=== PATIENT | male | born 1990 | race Caucasian/White ===

== ENCOUNTER 2018-01-24 09:49 | Emergency (ER) | payer MEDICAID ==
[~2018-01-24] VITALS: Ht 177.8 cm; Wt 77.6 kg
[~2018-01-24 09:49] MED LIST: ATIVAN0.5 MG PO; IBUPROFEN 800800 MG PO; PROZAC10 MG PO
[2018-01-24] MEDS ORDERED: IBUPROFEN 800800 M1 PO (11:30)
[2018-01-24 11:40] VITALS: BP 133/88
== END 2018-01-24 11:41 | disposition home or self-care (01) ==
LOC: M.ERS 09:49
DX: M25.562 Pain in left knee (principal); Z88.0 Allergy status to penicillin

== ENCOUNTER 2018-08-18 16:19 | Emergency (ER) | payer MEDICAID ==
[~2018-08-18] VITALS: Ht 175.3 cm; Wt 90.7 kg
[~2018-08-18 16:19] MED LIST changes: +IBUPROFEN 800800 M1 PO
[2018-08-18 18:09] LABS: INFLUENZA A ANTIGEN None Detected (None Detect); INFLUENZA B ANTIGEN None Detected (None Detect)
[2018-08-18 18:37] LABS: URINE CLARITY CLEAR; URINE COLOR ORANGE
[2018-08-18 18:39] LABS: HEMATOCRIT 43.5 % (42.0-52.0); HEMOGLOBIN 15.4 gm/dL (14.0-18.0); MCH 31.5 pg (26.0-34.0); MCHC 35.5 g/dL (28.0-37.0); MCV 88.6 fL (80.0-100.0); MPV 8.8 fl. (7.2-11.1); NUCLEATED RBCS 0 /100WBC; PLATELET COUNT* 145 thou/uL (150-400); RBC 4.91 mil/uL (4.50-6.00); RDW-CV 13.2 % (10.5-14.5); WBC 7.8 thou/uL (4.0-11.0)
[2018-08-18 18:42] LABS: CALCIUM 9.4 mg/dL (8.5-10.1); CREATININE 1.6 mg/dL (0.6-1.3); POTASSIUM 3.7 mmol/L (3.5-5.1)
[2018-08-18 18:44] LABS: SQUAMOUS 4-10 Moderate /LPF (0-3)
[2018-08-18 18:45] LABS: BACTERIA-REFLEX >30 Many /HPF (None Seen); URINE RBC 0-2 Rare /HPF (0-2); URINE WBC-REFLEX 0-5 Rare /HPF (0-5)
[2018-08-18 18:46] LABS: CASTS None Seen /LPF (None Seen); CRYSTALS None Seen /LPF (None Seen)
[2018-08-18 18:47] LABS: ALBUMIN 3.7 g/dL (3.4-5.0); TOTAL BILIRUBIN 3.7 mg/dL (<0.1-1.0); TOTAL PROTEIN 6.9 g/dL (6.4-8.2)
[2018-08-18 19:28] LABS: ABSOLUTE LYMPHOCYTES 0.2 thou/uL (0.8-5.3); ABSOLUTE MONOCYTES 0.5 thou/uL (0.0-1.2); ABSOLUTE NEUTROPHILS 7.1 thou/uL (1.6-8.1)
[2018-08-18 19:29] LABS: PLATELET ESTIMATE DECREASED
[2018-08-18 20:31] VITALS: BP 121/62
== END 2018-08-18 20:43 | disposition home or self-care (01) ==
LOC: M.ERS 16:19
PROVIDERS: Nurse Practitioner Family
DX: B34.9 Viral infection, unspecified (principal); Z88.0 Allergy status to penicillin